=== PATIENT | female | born 1990 | race Two or more races ===

== ENCOUNTER 2024-08-02 20:54 | Emergency (ER) | payer SELFPAY ==
[~2024-08-02] VITALS: Ht 165.1 cm; Wt 95.0 kg
[2024-08-02 21:00] VITALS: BP 120/72; PULSE 100; RESP 22; O2SAT 98
[2024-08-02] MEDS: PANTOPRAZOLE 40 MG/10 ML VIAL INJ IV ONE (22:07)
[2024-08-02] MEDS: ONDANSETRON HCL 4 MG/2 ML VIAL IV ONE (22:07)
[2024-08-02] MEDS: KETOROLAC TROMETH 30 MG/ML 1ML VIAL IV ONE (22:08)
[2024-08-02] MEDS: SODIUM CHLORIDE 0.9% 1,000 ML IV ONE (22:08)
== END 2024-08-02 23:03 | disposition home or self-care (01) ==
LOC: ER 20:54 → EDBD 20:54 → ER 23:03
DX: F10.129 Alcohol abuse with intoxication, unspecified (principal)
CPT/HCPCS: 96374; 96375; 99284; J1885; J2405; J2470; J7030